=== PATIENT | female | born 1950 | race Caucasian/White ===

== ENCOUNTER → 2017-09-02 | Outpatient (CLI) | payer OTHER | LOC: FIMAGING 08:08 | PROVIDERS: ATTEND Internal Medicine | DX: R42 Dizziness and giddiness (principal); M43.02 Spondylolysis, cervical region ==

== ENCOUNTER 2018-07-09 10:43 | Inpatient (IN) | payer OTHER ==
[2018-07-09 12:00] LABS: PLATELET COUNT 212 10^3/uL (150-400)
[2018-07-09] MEDS ORDERED: IOPAMIDOL (ISOVUE 370) 100 ML BTL IV ONE ×2 (13:05→16:47)
--- NOTE | 2018-07-09 13:13 | EDPHY ---
H & P Stated Complaint: Abd pain/bloating x 4 days;dyspneic, no injury Time Seen by Provider: 07/09/18 12:52 HPI/ROS: CHIEF COMPLAINT: Right-sided chest pain HISTORY OF PRESENT ILLNESS: 67-year-old female presents with right-sided chest pain. Onset of right chest pain 3 days ago. Associated with exertional shortness of breath and generalized weakness. The pain increases with deep inspiration and movement. Unable able to sleep last night because of severe pain. No fever or cough. History of DVT after lumbar surgery several years ago. REVIEW OF SYSTEMS: complete 10 point ROS negative except at noted in the HPI - Personal History Current Tetanus Diphtheria and Acellular Pertussis (TDAP): Yes Tetanus Vaccine Date: UP TO DATE PER PCP IN FEBRUARY - Medical/Surgical History PMH: DVT Other PMH: cholesterol. back surgeries w/rods - Social History Smoking Status: Never smoked Alcohol Use: Sober Additional Social History: - Physical Exam Exam: General Appearance: Alert, pleasant Eyes: Pupils equal and round, no conjunctival pallor or injection ENT, Mouth: Mucous membranes moist Neck: Normal inspection Respiratory: Right lateral chest wall tenderness, Lungs are clear to auscultation Cardiovascular: Regular rate and rhythm Gastrointestinal: Abdomen is soft, right upper quadrant tenderness Neurological: A&O, nonfocal, normal gait Skin: Warm and dry, scabbed over rash on buttocks Extremities: Nontender, no pedal edema Psychiatric: Mood and affect normal Constitutional: Initial Vital Signs Temperature (C) 37.8 C 07/09/18 10:50 Heart Rate 94 07/09/18 10:50 Respiratory Rate 18 07/09/18 10:50 Blood Pressure 122/69 H 07/09/18 10:50 O2 Sat (%) 96 07/09/18 10:50 O2 Delivery Mode Room Air Allergies/Adverse Reactions: No Known Allergies Allergy (Verified 07/09/18 10:58) Home Medications: Medication Instructions Recorded Atorvastatin Calcium [Lipitor 20 10 mg PO HS 07/09/18 mg (*)] Calcium Carb W/Vit D [Calcium Carb 1,000 mg PO HS 07/09/18 W/Vit D 500/200 (*)] Multivitamins [Multivitamin (*)] 1 each PO HS 07/09/18 Medical Decision Making - Diagnostics EKG Interpretation: EKG interpreted by me reveals normal sinus rhythm, rate 84, no ST or T segment changes. Interpretation: Normal EKG Imaging Results: Imaging Impressions Chest X-Ray 07/09/18 11:50 Impression: Suspect early right lower lobe pneumonia. Chest/Thorax CTA 07/09/18 12:57 Impression: 1. Positive pulmonary emboli right lower lobe, small volume. 2. Right lower lobe anterior basal segment pulmonary infarct. 3. Left lower lobe 6 mm pulmonary nodule for which continued follow-up up to two years is recommended, as described above. Findings and recommendations discussed with emergency department physician, Kaylynn Acuña MD at 1345 hours on July 09, 2018. Final report concurs with initial preliminary interpretation. A test result has been communicated to a licensed care provider and documented in the [employer] Critical Result system on 07/09/2018 13:53, Message ID [id number]. Imaging: Discussed imaging studies w/ scallop raker Radiologist, I viewed and interpreted images myself ED Course/Re-evaluation: Patient presents with right-sided chest pain and shortness of breath. Stat EKG reveals no evidence of ischemia or dysrhythmia. Chest x-ray reveals a right lower lobe infiltrate, though I suspect that this is actually a pulmonary infarct. D-dimer is elevated. CT pulmonary angiogram ordered. CT pulmonary angiogram reveals pulmonary emboli and pulmonary infarct. Results discussed with the patient. Morphine 4 mg IV given for pain control. Patient understands the risks and benefits of anticoagulation and agrees with treatment. Heparin per weight based protocol initiated. The hospitalist service was consulted for admission. Differential Diagnosis: Differential diagnosis includes though it is not limited to pneumonia, pneumothorax, pulmonary embolism, aortic dissection, pericarditis, acute coronary syndrome. - Data Points Laboratory Results: Laboratory Results 07/09/18 11:45 07/09/18 11:45 07/09/18 07/09/18 07/09/18 11:45 11:45 11:45 WBC RBC Hgb Hct MCV MCH MCHC RDW Plt Count MPV Neut % (Auto) Lymph % (Auto) Stevens % (Auto) Eos % (Auto) Baso % (Auto) Nucleat RBC Rel Count Absolute Neuts (auto) Absolute Lymphs (auto) Absolute Monos (auto) Absolute Eos (auto) Absolute Basos (auto) Absolute Nucleated RBC Immature Gran % Immature Gran # PT 12.3 SEC SEC (12.0-15.0) INR 0.89 (0.83-1.16) APTT 27.6 SEC SEC (23.0-38.0) D-Dimer 1.04 ug/mLFEU H ug/mLFEU (0.00-0.50) Sodium 136 mEq/L mEq/L (135-145) Potassium 4.0 mEq/L mEq/L (3.3-5.0) Chloride 100 mEq/L mEq/L (97-110) Carbon Dioxide 29 mEq/l mEq/l (22-31) Anion Gap 7 mEq/L L mEq/L (8-16) BUN 16 mg/dL mg/dL (7-23) Creatinine 0.8 mg/dL mg/dL (0.6-1.0) Estimated GFR > 60 Glucose 94 mg/dL mg/dL (70-100) Calcium 9.3 mg/dL mg/dL (8.5-10.4) Total Bilirubin 0.9 mg/dL mg/dL (0.1-1.4) Conjugated Bilirubin 0.1 mg/dL mg/dL (0.0-0.5) Unconjugated Bilirubin 0.8 mg/dL mg/dL (0.0-1.1) AST 27 IU/L IU/L (14-46) ALT 32 IU/L IU/L (9-52) Alkaline Phosphatase 74 IU/L IU/L (38-126) Total Protein 6.6 g/dL g/dL (6.3-8.2) Albumin 3.9 g/dL g/dL (3.5-5.0) Lipase 126 IU/L IU/L (23-300) Urine Color Urine Appearance Urine pH Ur Specific [place] Urine Protein Urine Ketones Urine Blood Urine Nitrate Urine Bilirubin Urine Urobilinogen Ur Leukocyte Esterase Urine Glucose 07/09/18 07/09/18 11:45 11:05 WBC 14.94 10^3/uL H 10^3/uL (3.80-9.50) RBC 5.14 10^6/uL 10^6/uL (4.18-5.33) Hgb 15.3 g/dL g/dL (12.6-16.3) Hct 45.7 % % (38.0-47.0) MCV 88.9 fL fL (81.5-99.8) MCH 29.8 pg pg (27.9-34.1) MCHC 33.5 g/dL g/dL (32.4-36.7) RDW 13.3 % % (11.5-15.2) Plt Count 212 10^3/uL 10^3/uL (150-400) MPV 9.7 fL fL (8.7-11.7) Neut % (Auto) 81.0 % H % (39.3-74.2) Lymph % (Auto) 11.4 % L % (15.0-45.0) Stevens % (Auto) 6.7 % % (4.5-13.0) Eos % (Auto) 0.3 % L % (0.6-7.6) Baso % (Auto) 0.3 % % (0.3-1.7) Nucleat RBC Rel Count 0.0 % % (0.0-0.2) Absolute Neuts (auto) 12.09 10^3/uL H 10^3/uL (1.70-6.50) Absolute Lymphs (auto) 1.71 10^3/uL 10^3/uL (1.00-3.00) Absolute Monos (auto) 1.00 10^3/uL H 10^3/uL (0.30-0.80) Absolute Eos (auto) 0.04 10^3/uL 10^3/uL (0.03-0.40) Absolute Basos (auto) 0.05 10^3/uL 10^3/uL (0.02-0.10) Absolute Nucleated RBC 0.00 10^3/uL 10^3/uL (0-0.01) Immature Gran % 0.3 % % (0.0-1.1) Immature Gran # 0.05 10^3/uL 10^3/uL (0.00-0.10) PT INR APTT D-Dimer Sodium Potassium Chloride Carbon Dioxide Anion Gap BUN Creatinine Estimated GFR Glucose Calcium Total Bilirubin Conjugated Bilirubin Unconjugated Bilirubin AST ALT Alkaline Phosphatase Total Protein Albumin Lipase Urine Color YELLOW Urine Appearance CLEAR Urine pH 6.0 (5.0-7.5) Ur Specific [place] 1.019 (1.002-1.030) Urine Protein NEGATIVE (NEGATIVE) Urine Ketones TRACE H (NEGATIVE) Urine Blood NEGATIVE (NEGATIVE) Urine Nitrate NEGATIVE (NEGATIVE) Urine Bilirubin NEGATIVE (NEGATIVE) Urine Urobilinogen NEGATIVE EU EU (0.2-1.0) Ur Leukocyte Esterase NEGATIVE (NEGATIVE) Urine Glucose NEGATIVE (NEGATIVE) Medications Given: Hydrocodone Bitart/Acetaminophen ([place] 5/325) 1 - 2 tab PO Q3HRS PRN PRN Reason: Pain, Moderate Able to Take PO Stop: 07/19/18 15:03 Last Admin: 07/09/18 18:29 Dose: 1 tab Hydromorphone HCl (Dilaudid) 0.5 - 1 mg IVP Q2HRS PRN PRN Reason: Pain, Severe Stop: 07/19/18 15:03 Last Admin: 07/09/18 16:36 Dose: 0.5 mg Discontinued Medications Heparin Sodium (Porcine) (Heparin Injection) 0 unit IVP EDNOW ONE Stop: 07/09/18 13:47 Last Admin: 07/09/18 14:10 Dose: 4,896 units Heparin Sodium (Porcine) (Heparin 50 Units/Ml (Premix)) 500 mls @ 0 mls/hr IV EDNOW ONE; Per Protocol PRN Reason: Protocol Stop: 07/09/18 13:47 Last Admin: 07/09/18 14:11 Dose: 500 mls Morphine Sulfate (Morphine) 4 mg IVP EDNOW ONE Stop: 07/09/18 14:04 Last Admin: 07/09/18 14:39 Dose: 4 mg Ondansetron HCl (Zofran) 4 mg IVP EDNOW ONE Stop: 07/09/18 14:04 Last Admin: 07/09/18 14:39 Dose: 4 mg Departure - Departure Disposition: [facility] Acute Clinical Impression: Pulmonary embolism and infarction Condition: Fair
[2018-07-09] MEDS ORDERED: HEPARIN/DEXTROSE 500 ML IV ONE (13:46)
[2018-07-09] MEDS ORDERED: HEPARIN 10,000 UNIT/10 ML MDV (1,000 UNIT/ML) IVP ONE (13:46)
[2018-07-09] MEDS ORDERED: ONDANSETRON 4 MG/2 ML VIAL IVP ONE (14:03)
[2018-07-09 14:33] LABS: INR 0.89 (0.83-1.16); PROTIME(PATIENT) 12.3 SEC (12.0-15.0)
[2018-07-09] MEDS ORDERED: HEPARIN 10,000 UNIT/10 ML MDV (1,000 UNIT/ML) IVP PRN (15:03)
[2018-07-09] MEDS ORDERED: ONDANSETRON 4 MG/2 ML VIAL IVP PRN (15:04)
[2018-07-09] MEDS ORDERED: oxyCODONE IR 5 MG TAB PO PRN (15:04)
[2018-07-09] MEDS ORDERED: ONDANSETRON DISINTEGRATING 4 MG TAB PO PRN (15:04)
--- NOTE | 2018-07-09 15:31 | GHP ---
[f rep st] HISTORY AND PHYSICAL DATE OF ADMISSION: 07/09/2018 CHIEF COMPLAINT: Chest pain. HISTORY OF PRESENT ILLNESS: This is a 67-year-old female who presents with chest pain. This started 4 days ago. Is right-sided, sharp, stabbing, severe, worse with inspiration. It has been associate d with some shortness of breath, though she has continued to exercise. She has not fainted. She has a history of a DVT, which occurred after a spinal surgery. She has not traveled recently. Has had severe ongoing back pain, though she is continued to be mobile and is not spend an inordinate amount of time in bed. She is up to date on cancer screening, including mammograms and colonoscopy. PAST MEDICAL/SURGICAL HISTORY: 1. DVT in 2010, after a spinal surgery, she was on anticoagulation for 3 months. 2. Osteoarthritis. 3. Spinal surgery. 4. Tonsillectomy. 5. Shoulder surgery in the s. MEDICATIONS: Please see medication reconciliation. ALLERGIES: No known drug allergies. FAMILY HISTORY: Negative for clots. SOCIAL HISTORY: She drinks 1 to 2 glasses of wine a day. She does not smoke. REVIEW OF SYSTEMS: A 10-point review of systems is conducted and is negative, except per HPI. PHYSICAL EXAMINATION: VITAL SIGNS: Blood pressure 120/83, heart rate 102, respiration rate 18, satu rating 96% on room air. Temperature is 36.7. GENERAL: The patient is a pleasant female who appears somewhat uncomfortable. She is intermittently holding her right side. HEENT: Shows her to be norm ocephalic, atraumatic. CARDIOVASCULAR: Regular rate and rhythm. No murmurs, rubs, or gallops. PUL MONARY: Lungs clear to auscultation bilaterally. She is breathing comfortably. CHEST: Exam shows her to be very tender to palpation over her right lateral lower ribs. ABDOMEN: Soft, nontender, non distended. SKIN: No rash. : No Sweet. NEUROLOGIC: Shows her to be alert and oriented x3. She is moving all extremities. PSYCHIATRIC: Shows normal mood and affect. LABORATORY: White count is 14.94, hemoglobin is 15.3, D-dimer is 1.0. INR 0.89. Creatinine 0.8, po tassium is 4.0. She has trace ketones in her urine. DATA: 1. I discussed the patient with Dr. Acuña. We will admit to med/surgical. 2. I reviewed her CT angiogram. This shows a small pulmonary nodule, as well as small volume right- sided pulmonary emboli with a right lower lobe pulmonary infarct. 3. I personally viewed and interpreted her EKG. This shows sinus rhythm. There are no acute ischem ic changes. She has a normal axis. IMPRESSION/PLAN: 1. Acute pulmonary embolus: Appears unprovoked. She does have a history. She has been started on intravenous heparin in the emergency department, I will continue this for now. I did discuss NOACs, I gave her information on Eliquis, Xarelto, and Pradaxa. She will consider these versus warfarin mov ing forward. She can likely be transitioned to a p.o. anticoagulant tomorrow. She is hemodynamicall y stable. 2. Leukocytosis: I suspect that this is stress response in the setting of a pulmonary infarct. I d oubt she has pneumonia at this time. We will just recheck this tomorrow. 3. Pulmonary nodule: She will need outpatient followup for this. /[id number]/MODL
[2018-07-09] MEDS: HYDROmorphONE/DILAUDID 1 MG/ML INJ IVP PRN ×2 (16:36→21:21)
[2018-07-09] MEDS: HYDROCODONE/APAP 5/325 TAB PO PRN ×2 (18:29→22:06)
[2018-07-09] MEDS: CALCIUM CARB W/VIT D 500 MG TAB PO SCH (21:22)
[2018-07-09] MEDS: MULTIVITAMINS 1 EACH TAB PO SCH (21:22)
[2018-07-09] MEDS: ATORVASTATIN CALCIUM 10 MG TAB PO SCH (21:22)
[2018-07-10] MEDS: HYDROmorphONE/DILAUDID 1 MG/ML INJ IVP PRN ×2 (04:33→08:52)
[2018-07-10 05:02] LABS: PLATELET COUNT 180 10^3/uL (150-400)
[2018-07-10] MEDS ORDERED: PROMETHAZINE HCL 25 MG/ML INJ IVP PRN (13:36)
--- NOTE | 2018-07-10 13:59 | ASMTCASEMG ---
Living Arrangements What is your living Answers: With Spouse arrangement? Who do you live with? Type Of Residence What kind of residence do Answers: House you live in? Discharge Plan Comments Coordination Status Comments Notes: Pt is a 67 y/o female admitted for pulmonary embolism. Pt will most likely d/c independent when medically stable. Pt will have an EKG. No therapies ordered at this time. CM available for changes. Plan: Independent Date Signed: 07/10/2018 01:59 PM Electronically Signed By:JENNY Danielle
[2018-07-10] MEDS: COLCHICINE 0.6 MG CAP/TAB PO SCH ×2 (14:15→20:34)
[2018-07-10] MEDS: ONDANSETRON 4 MG/2 ML VIAL IVP SCH ×3 (14:15→21:09)
[2018-07-10] MEDS: HYDROCODONE/APAP 5/325 TAB PO PRN ×2 (14:15→20:34)
--- NOTE | 2018-07-10 18:31 | HOSPPROG ---
Hospitalist Progress Note Assessment/Plan: DIAGNOSES: * acute pulmonary emboli, radiologically small volume noted on initial CT but with small lung infarct on right * This episode unprovoked * Stable pulse and blood pressure * Initially no hypoxemia, some hypoxemia today though uncertain if that is due to her PE or due to narcotics * increased chest pain today raising question of whether there may have been further embolism * Note that her 1st measured heparin level on heparin drip was low * ongoing severe pleuritic pain due to above, poorly controlled with narcotic which is causing a lot of nausea (long history of nausea from narcotics) * prior history of 1 episode of postoperative DVT * incidental lung nodule noted on CT scan will need radiologic follow-up Seen by me today on hospitalist rounds and multidisciplinary rounds PLANS: * Continue IV heparin drip at this time, begin Coumadin therapy * Continue analgesics for pain medicine, however due to her poor response so far and her severe nausea from the medicines will try some colchicine to see if this helps the pain of her infarct * Check troponin and BNP to make sure that they are in good range as she has had worsening pain with new hypoxia today with question of possible progression of embolisms before she became therapeutic on heparin * She will need eventual outpatient CT follow-up of lung nodule SUBJECTIVE: Ongoing severe right-sided pleuritic chest pain. She has been using moderate narcotic here with unsatisfactory relief of pain and with a lot of nausea and vomiting caused by the narcotics Not short of breath but has developed some degree of hypoxemia today OBJECTIVE Vitals reviewed: Vitals remained stable so far, no fever Elementary Reading Tutor, my review: Sinus Exam: alert oriented looks fairly uncomfortable skin warm dry color ok resps not labored lungs clear BSs heart regular abd soft nondistended nontender, bowel sounds present limbs warm, no edema iv site ok Laboratory data: Initial heparin level was low but they have been therapeutic since then White blood cell count on 11,900, stable hemoglobin Radiology: I did review her CT scan images and agree with diagnosis of acute PE with pulmonary infarct and lung nodule Objective: Vital Signs Temp Pulse Resp BP Pulse Ox 36.4 C 72 16 107/69 94 07/10/18 15:06 07/10/18 15:06 07/10/18 15:06 07/10/18 15:06 07/10/18 15:06 Laboratory Results 07/10/18 04:52 07/10/18 04:52 07/09/18 07/10/18 07/11/18 06:59 06:59 06:59 Intake Total 733 150 Output Total 500 1350 Balance 233 -1200 PT 12.3 SEC (12.0-15.0) 07/09/18 11:45 INR 0.89 (0.83-1.16) 07/09/18 11:45 - Time Spent With Patient Time Spent with Patient: greater than 35 minutes Time Spent with Patient: Greater than 35 minutes spent on this patients care, greater than 50% of time spent counseling, educating, and coordinating care regarding the above mentioned plan. ICD10 Worksheet Patient Problems: Problems Problem Status Onset Pulmonary embolism and infarction Acute
[2018-07-10] MEDS: CALCIUM CARB W/VIT D 500 MG TAB PO SCH (20:34)
[2018-07-10] MEDS: ATORVASTATIN CALCIUM 10 MG TAB PO SCH (20:34)
[2018-07-10] MEDS: MULTIVITAMINS 1 EACH TAB PO SCH (20:34)
[2018-07-11] MEDS: HEPARIN/DEXTROSE 500 ML IV SCH (01:00)
[2018-07-11] MEDS: ONDANSETRON 4 MG/2 ML VIAL IVP SCH ×6 (03:03→23:11)
[2018-07-11] MEDS: HYDROCODONE/APAP 5/325 TAB PO PRN (06:35)
[2018-07-11] MEDS: COLCHICINE 0.6 MG CAP/TAB PO SCH ×2 (08:22→21:18)
--- NOTE | 2018-07-11 09:21 | PDMN ---
Medical Necessity Medical necessity: [facility] M290 PE: 67 y/o W/ acute PE, small lung infarct on right. Initially stable w/ no hypoxemia, some hypoxemia developed 07/10 and increased CP noted also, ongoing severe pleuritic pain poorly controlled with narcotics. Prior hx of post Op DVT noted. Cont IV heparin drip, check troponins and BNP, cont cardiac monitoring. Due to uncontrolled pain and nausea , inability to keep PO meds down reliably, requirement for IV meds, etc., will need to change to IP status per Dr. Venegas 07/10/18 @ 3131
[2018-07-11] MEDS: ACETAMINOPHEN 325 MG TAB PO PRN ×2 (12:57→21:18)
--- NOTE | 2018-07-11 19:33 | HOSPPROG ---
Hospitalist Progress Note Assessment/Plan: DIAGNOSES: * acute pulmonary emboli, radiologically small volume noted on initial CT but with small lung infarct on right * This episode unprovoked * Stable pulse and blood pressure * Suspect she may have had further embolisms on admission day after initial CT given increase in pain and new onset of hypoxemia yesterday * Note that her 1st measured heparin level on heparin drip was low * severe pain from PE and pulmonary infarct, better controlled today * ongoing nausea vomiting making oral therapy unreliable at this time * prior history of 1 episode of postoperative DVT * incidental lung nodule noted on CT scan will need radiologic follow-up PLANS: * Continue IV heparin drip at this time * Hopefully can discharge in 1-2 days * She would like to begin Eliquis for therapy at the time of discharge * Continue analgesics and colchicine for her pain at this time * She will need eventual outpatient CT follow-up of lung nodule; reviewed this with her in detail today SUBJECTIVE: Overall feeling notably better today However did have significant nausea again this morning and vomited a few times, did eat lunch Chest pain is still present and requiring frequent analgesics doses but more tolerable today overall Is walking in room OBJECTIVE Vitals reviewed: Vitals remained stable so far, no fever; * still does get hypoxic to 85% on room air at rest Die Cast Supervisor, my review: Sinus Exam: alert oriented looks fairly uncomfortable skin warm dry color ok resps not labored lungs clear BSs heart regular abd soft nondistended nontender, bowel sounds present limbs warm, no edema iv site ok Laboratory data: Initial heparin level was low but they have been therapeutic since then Objective: Vital Signs Temp Pulse Resp BP Pulse Ox 36.8 C 91 16 123/91 H 93 07/11/18 15:31 07/11/18 15:31 07/11/18 15:31 07/11/18 15:31 07/11/18 15:31 Laboratory Results 07/11/18 04:12 07/10/18 07/11/18 07/12/18 06:59 06:59 06:59 Intake Total 519.6 419.6 Output Total 400 700 Balance 119.6 -280.4 PT 12.3 SEC (12.0-15.0) 07/09/18 11:45 INR 0.89 (0.83-1.16) 07/09/18 11:45 ICD10 Worksheet Patient Problems: Problems Problem Status Onset Pulmonary embolism and infarction Acute
[2018-07-11] MEDS: CALCIUM CARB W/VIT D 500 MG TAB PO SCH (21:11)
[2018-07-11] MEDS: ATORVASTATIN CALCIUM 10 MG TAB PO SCH (21:18)
[2018-07-11] MEDS: MULTIVITAMINS 1 EACH TAB PO SCH (21:18)
[2018-07-12] MEDS: ONDANSETRON 4 MG/2 ML VIAL IVP SCH ×4 (01:54→13:31)
[2018-07-12] MEDS: HEPARIN/DEXTROSE 500 ML IV SCH (03:58)
[2018-07-12] MEDS: COLCHICINE 0.6 MG CAP/TAB PO SCH (08:40)
[2018-07-12] MEDS: ACETAMINOPHEN 325 MG TAB PO PRN (08:40)
--- NOTE | 2018-07-12 12:55 | CPEKG ---
Test Reason : OPEN Blood Pressure : / mmHG Vent. Rate : 084 BPM Atrial Rate : 085 BPM P-R Int : 160 ms QRS Dur : 083 ms QT Int : 373 ms P-R-T Axes : 027 031 018 degrees QTc Int : 441 ms Sinus rhythm Unchanged in comparison to prior Confirmed by Angel Hallman ([id number]) on 07/12/2018 12:55:22 PM Referred By: Confirmed By:Angel Hallman
[2018-07-12 15:00] VITALS: BP 116/85
--- NOTE | 2018-07-12 16:04 | PDDCSUM ---
Discharge Summary Discharge Summary: This is a 67 yo female who was admitted with unprovoked right lung pulmonary embolus with pulmonary infarct. She did not have any e/o of right sided strain. She did not have lower extremity edema. She was treated with Heparin and will be transitioned to Eliquis at the time of discharge. Discharge diagnosis #right sided pulmonary embolus #chest pain #dyspnea Ex on RA NAD, AAOX3 RRR CTA B S/NT/ND MEDS: SEE MED REC F/U : WITH PCP IN ONE WEEK TOTAL TIME SPENT ON D/C IS 35 MINS
== END 2018-07-12 17:50 | disposition home or self-care (01) | DRG 176 ==
LOC: F2W 15:30 → OBSVTOIN 07-10 18:32
PROVIDERS: ADMIT Student in an Organized Health Care Education/Training Program; ATTEND Family Medicine
DX: I26.99 Other pulmonary embolism without acute cor pulmonale (principal); R91.1 Solitary pulmonary nodule; Z86.718 Personal history of other venous thrombosis and embolism
CPT/HCPCS: 85520-90; 96365; G0378; J1170; J1644; J2270; J2405; Q9967

== ENCOUNTER → 2018-11-01 | Outpatient (CLI) | payer OTHER | LOC: BMCIMAGING 13:32 | PROVIDERS: ATTEND Internal Medicine Hematology & Oncology | DX: Z12.31 Encounter for screening mammogram for malignant neoplasm of breast (principal) ==